=== PATIENT | female | born 1990 | race Asian ===

== ENCOUNTER 2017-04-14 13:50 | Emergency (ER) | payer MEDICAID ==
[~2017-04-14] VITALS: Ht 167.6 cm; Wt 85.0 kg
[2017-04-14 14:01] VITALS: BP 122/74
== END 2017-04-14 14:56 | disposition home or self-care (01) ==
LOC: ED 14:50
DX: K08.89 Other specified disorders of teeth and supporting structures (principal)
CPT/HCPCS: 99283

== ENCOUNTER 2019-11-16 09:25 | Emergency (ER) | payer MEDICAID ==
[~2019-11-16] VITALS: Ht 167.6 cm; Wt 78.7 kg
[2019-11-16 09:31] VITALS: BP 123/64
[2019-11-16 09:46] LABS: BASOPHILS # (AUTO) 0.04 x10^3/uL (0-0.1); BASOPHILS % (AUTO) 0 % (0-1); EOSINOPHILS # (AUTO) 0.06 x10^3/uL (0-0.4); EOSINOPHILS % (AUTO) 1 % (1-7); LYMPHOCYTES # (AUTO) 1.94 x10^3/uL (1-3.4); LYMPHOCYTES % (AUTO) 18 % (22-44); MD NO; MEAN CORPUSCULAR HEMOGLOBIN 33.9 pg (27.0-34.8); MEAN CORPUSCULAR VOLUME 99.5 fL (80-100); MEAN PLATELET VOLUME 7.1 fL (7.4-10.4); MONOCYTES # (AUTO) 0.45 x10^3/uL (0.2-0.8); MONOCYTES % (AUTO) 4 % (2-9); NEUTROPHILS # (AUTO) 8.09 x10^3/uL (1.8-6.8); NEUTROPHILS % (AUTO) 76 % (42-75); PLATELET COUNT 341 x10^3/uL (130-400); RED BLOOD COUNT 3.84 x10^6/uL (3.82-5.3); RED CELL DISTRIBUTION WIDTH 14.4 % (9.6-15.2)
[2019-11-16 09:58] LABS: ALBUMIN 3.2 g/dL (3.4-5.0); ANION GAP 9 mmol/L (5-15); CALCIUM 8.6 mg/dL (8.5-10.1); CHLORIDE 108 mmol/L (98-107)
--- NOTE | 2019-11-16 10:51 | NUR ---
PT AMBULATED WITH STEADY GAIT TO ROOM FROM [facility]
[2019-11-16 11:27] LABS: MICROSCOPIC INDICATED
[2019-11-16 12:12] LABS: CULTURE INDICATED? YES
--- NOTE | 2019-11-16 13:54 | NUR ---
ATTEMPTED DISCHARGE, PT REQUESTING TO TALK TO MD. AT BEDSIDE
== END 2019-11-16 14:09 | disposition home or self-care (01) ==
LOC: ED 14:06
DX: O34.12 Maternal care for benign tumor of corpus uteri, second trimester (principal); R82.71 Bacteriuria; R10.31 Right lower quadrant pain; Z3A.18 18 weeks gestation of pregnancy
CPT/HCPCS: 36415; 72195; 76815; 80048; 81001; 82040; 84702; 85025; 87086; 99285

== ENCOUNTER 2019-11-23 16:33 | Inpatient (IN) | payer MEDICAID ==
[~2019-11-23] VITALS: Ht 167.6 cm; Wt 75.9 kg
[2019-11-23] MEDS: MISOPROSTOL 200 MCG TABLET PO PRN ×2 (16:39→22:36)
[2019-11-23] MEDS: LACTATED RINGERS 1,000 ML IV SCH ×2 (16:41→20:21)
[2019-11-23] MEDS ORDERED: OXYTOCIN 30U/ 0.9% NaCL 500ML 500 ML IV ONE (16:41)
[2019-11-23] MEDS ORDERED: OXYTOCIN 30U/ 0.9% NaCL 500ML 500 ML IV PRN (16:41)
[2019-11-23] MEDS ORDERED: OXYTOCIN 30U/ 0.9% NaCL 500ML 500 ML ONE (16:46)
[2019-11-23] MEDS ORDERED: RHOGAM FROM BLOOD BANK 1 NOTE EA IM/IV PRN (17:00)
[2019-11-23] MEDS ORDERED: OXYcodone/APAP 5/325MG TABLET PO PRN (17:00)
[2019-11-23] MEDS ORDERED: METOCLOPRAMIDE 5 MG/ML, 2ML IVPush PRN (17:00)
[2019-11-23] MEDS ORDERED: OXYcodone/APAP 10/325MG TABLET PO PRN (17:00)
[2019-11-23] MEDS ORDERED: SODIUM CITRATE/CITRIC ACID 30 ML UDC PO PRN (17:00)
[2019-11-23] MEDS ORDERED: ACETAMINOPHEN 325 MG TABLET PO PRN ×2 (17:00)
[2019-11-23 17:53] LABS: BASOPHILS # (AUTO) 0.05 x10^3/uL (0-0.1); BASOPHILS % (AUTO) 0 % (0-1); EOSINOPHILS # (AUTO) 0.02 x10^3/uL (0-0.4); EOSINOPHILS % (AUTO) 0 % (1-7); LYMPHOCYTES # (AUTO) 1.44 x10^3/uL (1-3.4); LYMPHOCYTES % (AUTO) 12 % (22-44); MD NO; MEAN CORPUSCULAR HEMOGLOBIN 33.7 pg (27.0-34.8); MEAN CORPUSCULAR VOLUME 99.1 fL (80-100); MEAN PLATELET VOLUME 7.9 fL (7.4-10.4); MONOCYTES # (AUTO) 0.39 x10^3/uL (0.2-0.8); MONOCYTES % (AUTO) 3 % (2-9); NEUTROPHILS # (AUTO) 9.83 x10^3/uL (1.8-6.8); NEUTROPHILS % (AUTO) 84 % (42-75); PLATELET COUNT 322 x10^3/uL (130-400); RED BLOOD COUNT 3.67 x10^6/uL (3.82-5.3); RED CELL DISTRIBUTION WIDTH 13.6 % (9.6-15.2)
[2019-11-23 19:23] VITALS: BP 106/58
[2019-11-23] MEDS ORDERED: FENTANYL PF 100 MCG/2ML IVPush PRN ×2 (19:30)
[2019-11-23] MEDS ORDERED: CALCIUM CARBONATE 500 MG TAB.CHEW PO PRN (19:30)
[2019-11-23] MEDS ORDERED: ONDANSETRON 2MG/ML, 2ML IVPush PRN (19:30)
[2019-11-23] MEDS ORDERED: OXYcodone/APAP 5/325MG TABLET ONE (20:05)
[2019-11-23] MEDS ORDERED: GENTAMICIN 0 MG in SODIUM CHLORIDE 0.9% 100 ML IV SCH (20:30)
[2019-11-23] MEDS: AMPICILLIN 2 GM in SODIUM CHLORIDE 0.9% 100 ML IV SCH (20:45)
[2019-11-23] MEDS ORDERED: GENTAMICIN PER PHARMACY MC PRN (21:00)
[2019-11-23] MEDS ORDERED: PHARMACOKINETIC MONITORING MC PRN (21:00)
[2019-11-23] MEDS ORDERED: LIDOCAINE 1%, 20ML ONE (21:11)
[2019-11-23] MEDS ORDERED: MISOPROSTOL 200 MCG TABLET ONE ×2 (21:11→22:30)
[2019-11-23] MEDS: GENTAMICIN 140 MG in SODIUM CHLORIDE 0.9% 50 ML IV SCH (21:23)
[2019-11-23 23:22] VITALS: BP 106/54
[2019-11-24] MEDS: LACTATED RINGERS 1,000 ML IV SCH (02:00)
[2019-11-24] MEDS ORDERED: FENTANYL PF 100 MCG/2ML ONE ×2 (02:00→03:13)
[2019-11-24] MEDS ORDERED: METOCLOPRAMIDE 5 MG/ML, 2ML ONE (02:41)
[2019-11-24] MEDS ORDERED: SODIUM CITRATE/CITRIC ACID 30 ML UDC ONE (02:41)
[2019-11-24] MEDS ORDERED: EPINEPHRINE 1 MG/ML, 1ML ONE (03:19)
[2019-11-24] MEDS ORDERED: EPHEDRINE 50 MG/ML, 1ML ONE (03:19)
[2019-11-24] MEDS: AMPICILLIN 2 GM in SODIUM CHLORIDE 0.9% 100 ML IV SCH ×4 (04:01→22:22)
[2019-11-24 04:21] LABS: MICROSCOPIC NOT IND
[2019-11-24 04:22] LABS: CULTURE INDICATED? NO
[2019-11-24 04:32] LABS: AMPHETAMINE SCREEN, URINE Negative (Negative); BARBITURATE SCREEN, URINE Negative (Negative); BENZODIAZEPINE SCREEN, URINE Negative (Negative); CANNABINOID SCREEN, URINE Negative (Negative); COCAINE SCREEN, URINE Negative (Negative); METHADONE SCREEN, URINE Negative (Negative); OPIATE SCREEN, URINE Negative (Negative)
[2019-11-24] MEDS: MISOPROSTOL 200 MCG TABLET PO PRN (04:33)
[2019-11-24] MEDS: GENTAMICIN 140 MG in SODIUM CHLORIDE 0.9% 50 ML IV SCH ×3 (04:39→20:32)
[2019-11-24 04:50] VITALS: BP 107/54
[2019-11-24 06:16] LABS: BASOPHILS # (AUTO) 0.02 x10^3/uL (0-0.1); BASOPHILS % (AUTO) 0 % (0-1); EOSINOPHILS % (AUTO) 0 % (1-7); LYMPHOCYTES # (AUTO) 1.04 x10^3/uL (1-3.4); LYMPHOCYTES % (AUTO) 12 % (22-44); MD NO; MEAN CORPUSCULAR HEMOGLOBIN 33.6 pg (27.0-34.8); MEAN CORPUSCULAR HGB CONC 34.3 g/dL (32.4-35.8); MEAN PLATELET VOLUME 7.3 fL (7.4-10.4); MONOCYTES # (AUTO) 0.32 x10^3/uL (0.2-0.8); MONOCYTES % (AUTO) 4 % (2-9); NEUTROPHILS # (AUTO) 7.14 x10^3/uL (1.8-6.8); NEUTROPHILS % (AUTO) 84 % (42-75); PLATELET COUNT 269 x10^3/uL (130-400); RED BLOOD COUNT 3.14 x10^6/uL (3.82-5.3); RED CELL DISTRIBUTION WIDTH 13.6 % (9.6-15.2)
[2019-11-24 06:26] LABS: CREATININE 0.67 mg/dL (0.55-1.02)
[2019-11-24] MEDS ORDERED: ACETAMINOPHEN 325 MG TABLET ONE ×3 (06:30→23:40)
[2019-11-24 06:34] VITALS: BP 107/55
[2019-11-24] MEDS ORDERED: ACETAMINOPHEN 325 MG TABLET PO PRN (07:30)
[2019-11-24] MEDS ORDERED: IBUPROFEN 600 MG TABLET PO PRN (07:30)
[2019-11-24] MEDS ORDERED: OXYcodone IR 5MG TABLET PO PRN (07:30)
[2019-11-24] MEDS ORDERED: METHYLERGONOVINE 0.2 MG/ML IM ONE (08:00)
[2019-11-24] MEDS: CLINDAMYCIN PMX 900MG/50ML 50 ML IV SCH ×3 (08:20→23:28)
[2019-11-24] MEDS ORDERED: OXYcodone IR 5MG TABLET ONE (10:01)
[2019-11-24] MEDS ORDERED: OXYcodone/APAP 5/325MG TABLET ONE (13:25)
[2019-11-24] MEDS: OXYcodone/APAP 5/325MG TABLET PO PRN (13:26)
[2019-11-24] MEDS ORDERED: OXYcodone/APAP 5/325MG TABLET PO PRN (13:30)
[2019-11-24] MEDS ORDERED: CLINDAMYCIN PMX 900MG/50ML 50 ML ONE (16:41)
[2019-11-24 20:00] VITALS: BP 113/60
[2019-11-24] MEDS ORDERED: IBUPROFEN 800 MG TABLET ONE (23:40)
[2019-11-24] MEDS: IBUPROFEN 800 MG TABLET PO PRN (23:42)
[2019-11-25] MEDS ORDERED: IBUPROFEN 600 MG TABLET PO PRN
[2019-11-25] MEDS: AMPICILLIN 2 GM in SODIUM CHLORIDE 0.9% 100 ML IV SCH ×3 (03:57→18:01)
[2019-11-25] MEDS: GENTAMICIN 140 MG in SODIUM CHLORIDE 0.9% 50 ML IV SCH ×3 (04:37→20:13)
[2019-11-25] MEDS ORDERED: CLINDAMYCIN PMX 900MG/50ML 50 ML ONE ×3 (07:24→23:29)
[2019-11-25] MEDS: CLINDAMYCIN PMX 900MG/50ML 50 ML IV SCH ×3 (07:27→23:31)
[2019-11-25] MEDS: LACTATED RINGERS 1,000 ML IV SCH ×4 (07:28→18:05)
[2019-11-25 08:58] VITALS: BP 120/73
[2019-11-25 09:15] VITALS: BP 120/73
[2019-11-25] MEDS ORDERED: OXYcodone/APAP 5/325MG TABLET ONE (12:10)
[2019-11-25 12:12] VITALS: BP 120/63
[2019-11-25] MEDS: OXYcodone/APAP 5/325MG TABLET PO PRN (12:16)
[2019-11-25] MEDS ORDERED: IBUPROFEN 800 MG TABLET ONE (12:43)
[2019-11-25] MEDS: IBUPROFEN 800 MG TABLET PO PRN (12:43)
[2019-11-25 13:49] VITALS: BP 100/51
[2019-11-25] MEDS ORDERED: OMNIPAQUE 350 MG/ML, 100ML BOTTLE ONE (14:14)
[2019-11-25 20:00] VITALS: BP 94/52
[2019-11-25 23:30] VITALS: BP 116/64
[2019-11-26] MEDS: AMPICILLIN 2 GM in SODIUM CHLORIDE 0.9% 100 ML IV SCH ×5 (00:30→23:57)
[2019-11-26] MEDS ORDERED: IBUPROFEN 800 MG TABLET ONE ×2 (00:36→13:06)
[2019-11-26] MEDS: IBUPROFEN 800 MG TABLET PO PRN ×2 (00:38→13:08)
[2019-11-26] MEDS: GENTAMICIN 140 MG in SODIUM CHLORIDE 0.9% 50 ML IV SCH ×2 (04:35→12:52)
[2019-11-26] MEDS: LACTATED RINGERS 1,000 ML IV SCH ×2 (04:35→16:02)
[2019-11-26 04:46] VITALS: BP 87/54
[2019-11-26 06:39] LABS: BASOPHILS # (AUTO) 0.02 x10^3/uL (0-0.1); BASOPHILS % (AUTO) 0 % (0-1); EOSINOPHILS # (AUTO) 0.08 x10^3/uL (0-0.4); EOSINOPHILS % (AUTO) 1 % (1-7); LYMPHOCYTES # (AUTO) 1.68 x10^3/uL (1-3.4); LYMPHOCYTES % (AUTO) 25 % (22-44); MD NO; MEAN CORPUSCULAR HEMOGLOBIN 33.3 pg (27.0-34.8); MEAN CORPUSCULAR HGB CONC 33.5 g/dL (32.4-35.8); MEAN CORPUSCULAR VOLUME 99.5 fL (80-100); MEAN PLATELET VOLUME 7.3 fL (7.4-10.4); MONOCYTES # (AUTO) 0.35 x10^3/uL (0.2-0.8); MONOCYTES % (AUTO) 5 % (2-9); NEUTROPHILS # (AUTO) 4.56 x10^3/uL (1.8-6.8); NEUTROPHILS % (AUTO) 68 % (42-75); PLATELET COUNT 270 x10^3/uL (130-400); RED BLOOD COUNT 2.82 x10^6/uL (3.82-5.3); RED CELL DISTRIBUTION WIDTH 13.8 % (9.6-15.2)
[2019-11-26] MEDS ORDERED: CLINDAMYCIN PMX 900MG/50ML 50 ML ONE ×3 (07:19→22:56)
[2019-11-26] MEDS: CLINDAMYCIN PMX 900MG/50ML 50 ML IV SCH ×3 (07:21→22:58)
[2019-11-26 12:49] LABS: CREATININE 0.59 mg/dL (0.55-1.02)
[2019-11-26] MEDS: GENTAMICIN 160 MG in SODIUM CHLORIDE 0.9% 50 ML IV SCH (20:08)
[2019-11-26 20:13] VITALS: BP 110/53
[2019-11-27] MEDS: LACTATED RINGERS 1,000 ML IV SCH ×2 (00:41→01:32)
[2019-11-27] MEDS: GENTAMICIN 160 MG in SODIUM CHLORIDE 0.9% 50 ML IV SCH ×3 (03:42→20:08)
[2019-11-27] MEDS: AMPICILLIN 2 GM in SODIUM CHLORIDE 0.9% 100 ML IV SCH ×4 (05:57→23:54)
[2019-11-27] MEDS ORDERED: CLINDAMYCIN PMX 900MG/50ML 50 ML ONE ×3 (07:23→22:47)
[2019-11-27] MEDS: CLINDAMYCIN PMX 900MG/50ML 50 ML IV SCH ×3 (07:30→22:53)
[2019-11-27 07:44] VITALS: BP 110/64
[2019-11-27 09:46] VITALS: BP 97/56
[2019-11-27 12:35] VITALS: BP 113/61
[2019-11-27 15:00] VITALS: BP 108/63
[2019-11-27 17:07] VITALS: BP 111/63
[2019-11-27 20:13] VITALS: BP 112/57
[2019-11-28] MEDS: GENTAMICIN 160 MG in SODIUM CHLORIDE 0.9% 50 ML IV SCH ×2 (04:00→11:42)
[2019-11-28] MEDS: AMPICILLIN 2 GM in SODIUM CHLORIDE 0.9% 100 ML IV SCH ×2 (06:09→12:19)
[2019-11-28] MEDS ORDERED: CLINDAMYCIN PMX 900MG/50ML 50 ML ONE ×2 (07:15→14:54)
[2019-11-28] MEDS: CLINDAMYCIN PMX 900MG/50ML 50 ML IV SCH ×2 (07:20→14:55)
[2019-11-28 07:25] VITALS: BP 103/58
[2019-11-28] MEDS ORDERED: MEASLES,MUMPS&RUBELLA VACC/PF 0.5 ML SQ-VACC PRN (09:00)
[2019-11-28] MEDS ORDERED: AMOX1TAB64 PO (15:16)
== END 2019-11-28 16:44 | disposition home or self-care (01) | DRG 770 ==
LOC: LDIP 16:33 → OBSVTOIN 16:41 → 2NE 11-24 15:42
PROVIDERS: ADMIT Student in an Organized Health Care Education/Training Program; ATTEND Student in an Organized Health Care Education/Training Program
PROC: 10D17ZZ Extraction of Products of Conception, Retained, Via Natural or Artificial Opening (ICD-10-PCS; principal; 2019-11-25)
DX: O03.4 Incomplete spontaneous abortion without complication (principal); O41.1020 Infection of amniotic sac and membranes, unspecified, second trimester, not applicable or unspecified; O75.3 Other infection during labor; D62 Acute posthemorrhagic anemia; N93.9 Abnormal uterine and vaginal bleeding, unspecified; D25.9 Leiomyoma of uterus, unspecified; Z3A.19 19 weeks gestation of pregnancy; O99.012 Anemia complicating pregnancy, second trimester
CPT/HCPCS: 36415; 59414; 74177; 76815; 80170; 80307; 81003; 82565; 83605; 84520; 85025; 86592; 86762; 86850; 86900; 87040; 87086; 87340; 87806; 88305; G0378; J0171; J0290; J3010; Q9967; G0475; J1580; J2210; J2765; J7120